=== PATIENT | female | born 1975 | race Caucasian/White ===

== ENCOUNTER → 2018-04-02 16:38 | Outpatient (CLI) | payer MEDICAID, SELFPAY ==
--- NOTE | 2018-04-02 16:46 | MM_ITS ---
MM Dig screening mamm BI w/CAD CAD Screening COMPARISON: Digital mammograms with CAD 12/25/2013 INDICATION: There is no personal or family history of breast cancer TECHNIQUE: Standard CC and MLO images were obtained. R2 CAD reviewed. FINDINGS: There is a diffusely dense and heterogenic parenchymal pattern lessening the sensitivity of mammography. There are couple benign-appearing calcifications left breast. There is no suspicious lesion and there are no suspicious microcalcifications. IMPRESSION: Diffusely dense parenchymal pattern with no suspicious lesion seen BI-RADS Category: 2 Benign Finding(s) RECOMMENDED FOLLOW-UP: 1YR - 1 YEAR FOLLOW-UP (A letter has been sent to the patient regarding results of the study.)
== END ==
PROVIDERS: PCP Nurse Practitioner Family; Visit Provider Nurse Practitioner Family
DX: Z12.31 Encounter for screening mammogram for malignant neoplasm of breast (principal)
CPT/HCPCS: 77067

== ENCOUNTER 2024-09-17 09:33 | Outpatient (CLI) | payer OTHER, SELFPAY ==
--- OUTSIDE RECORDS SUMMARY | 2024-09-17 09:37 | XMS_ITS | Data Portability ---
Author Organization [facility] Address [address] [place] [address] Care Team Providers Care Engraver Seals Name Role Phone BRANDEN PIZANO Primary Care Provider [phone] Assessment Encounter Date Assessment Date Assessment LastModified by Organization Details LastModified Time 04/11/2023 04/11/2023 PATIENT TO CONTINUE WITH CURRENT MANAGEMENT. WE HAVE HAD EXTENSIVE DISCUSSIONS REGARDING CHRONIC ISSUES. WILL CALL PATIENT TO DISCUSS RESULTS OF LAB WORK AND MAKE PLANS BASED ON FINDINGS. [email or web address] Not available 04/11/2023 09:14:32 Plan of Treatment Reminders Order Date Submit Date Provider Last Modified By Organization Details Last Modified Time Details Appointments None recorded. Lab noninvasive colorectal cancer DNA + occult blood screening, QL, stool 2022 023 [email or web address] (Cologuard Orders Only), [address], [address], [place], [address], 4 07:57:43 lipid panel, serum 2022 023 [facility] (Laboratory), [address] [place], [address], 3 14:02:54 CMP, serum or plasma 2022 023 [facility] (Laboratory), [address] [place], [address], 3 14:02:52 CBC w/ auto diff 2022 023 [facility] (Laboratory), [address] [place], [address], 3 13:38:50 TSH, serum or plasma 2022 [facility] (Laboratory), [address] [place], [address], 3 14:01:45 vitamin D, 25-hydroxy, total, serum [address] (Laboratory), [address] [place], [address], 3 13:40:42 vitamin B12 + folate, serum or blood [address] (Laboratory), [address] [place], [address], 3 13:41:09 thiamine, QN, blood 2022 [facility] (Laboratory), [address] [place], [address], 3 07:23:30 hemoglobin A1c + average glucose, QN, blood 2022 [facility] (Laboratory), [address] [place], [address], 3 07:23:30 Referral gastroenter ologist referral 2022 023 [facility] [address] [place], [address], 4 15:24:19 Procedures None recorded. Surgeries None recorded. Imaging LDCT, chest, for lung cancer screening 2022 [facility] (Lab Registration) , [address] [place], [address], 3 12:05:29 Medication Orders Medrol (Renaldo) 4 mg tablets in a dose pack 2023 [facility] [address], [address] [place], [address], 4 10:21:34 doxycycline hyclate 100 mg capsule 2023 [facility] [address], [address] [place] [address], [address], 4 10:21:34 venlafaxine ER 150 mg capsule,ext ended release 24 hr 2023 [facility] [address], [address] [place] [address], [address], 4 11:26:23 Allergy Relief (loratadine ) 10 mg tablet 2023 [facility] [address], [address] [place] [address], [address], 4 11:26:23 nicotine 21 mg/24 hr daily transdermal patch 2023 [facility] [address], [address] [place] [address], [address], 4 10:10:26 venlafaxine ER 150 mg capsule,ext ended release 24 hr 2022 023 [facility] [address], [address] [place] [address], [address], 3 09:40:26 Vraylar 1.5 mg capsule 2022 023 [facility] [address], [address] [place] [address], [address], 4 15:10:37 Patient TargetsNo targets recorded. Patient InstructionsNo instructions recorded. 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 Referring Physician: Branden Pizano, Family Medicine, Encounter Date: 04/11/2023 Results Created Date Observation Date Name Description Value Unit Range Abnormal Flag Note LastModifiedBy Organization Detail LastModifiedTime 04/11/20 23 04/11/2023 CBC AUTO W DIFF WBC 8.2 10 4.5-11 .5 Not Available [facility] (Lab Registration) [address] [place], [address], 04/11/2023 13:38:50 04/11/20 23 04/11/2023 CBC AUTO W DIFF RBC 4.51 10 4.25-5 .57 Not Available [facility] (Lab Registration) [address] [place], [address], 04/11/2023 13:38:50 04/11/20 23 04/11/2023 CBC AUTO W DIFF HGB 13.6 g/dL 12.0-1 5.7 Not Available [facility] (Lab Registration) [address] [place], [address], 04/11/2023 13:38:50 04/11/20 23 04/11/2023 CBC AUTO W DIFF HCT 41.4 % 36.0-4 7.0 Not Available [facility] (Lab Registration) [address] [place], [address], 04/11/2023 13:38:50 04/11/20 23 04/11/2023 CBC AUTO W DIFF MCV 91.8 fL 80-95 Not Available [facility] (Lab Registration) [address] [place], [address], 04/11/2023 13:38:50 04/11/20 23 04/11/2023 CBC AUTO W DIFF MCH 30.2 pg 27.0-3 4.0 Not Available [facility] (Lab Registration) [address] [place], [address], 04/11/2023 13:38:50 04/11/20 23 04/11/2023 CBC AUTO W DIFF MCHC 32.9 g/dL 32.0-3 6.0 Not Available [facility] (Lab Registration) [address] [place], [address], 04/11/2023 13:38:50 04/11/20 23 04/11/2023 CBC AUTO W DIFF platelet count 290 10 150-45 0 Not Available [facility] (Lab Registration) [address] [place], [address], 04/11/2023 13:38:50 04/11/20 23 04/11/2023 CBC AUTO W DIFF RDW 12.9 % 12.3-1 5.1 Not Available [facility] (Lab Registration) [address] [place], [address], 04/11/2023 13:38:50 04/11/20 23 04/11/2023 CBC AUTO W DIFF MPV 11.7 fL 7.4-10 .4 high Not Available [facility] (Lab Registration) [address] [place], [address], 04/11/2023 13:38:50 04/11/20 23 04/11/2023 CBC AUTO W DIFF granulocyte% 67.0 % 40-75 Not Available [facility] (Lab Registration) [address] [place], [address], 04/11/2023 13:38:50 04/11/20 23 04/11/2023 CBC AUTO W DIFF lymphocyte% 21.4 % 15-57 Not Available [facility] (Lab Registration) [address] [place], [address], 04/11/2023 13:38:50 04/11/20 23 04/11/2023 CBC AUTO W DIFF monocyte% 8.0 % 4.0-12 .0 Not Available [facility] (Lab Registration) [address] [place], [address], 04/11/2023 13:38:50 04/11/20 23 04/11/2023 CBC AUTO W DIFF eosinophil% 2.5 % 0.0-4. 0 Not Available [facility] (Lab Registration) [address] [place], [address], 04/11/2023 13:38:50 04/11/20 23 04/11/2023 CBC AUTO W DIFF basophil% 1.0 % 0.0-1. 0 Not Available [facility] (Lab Registration) [address] [place], [address], 04/11/2023 13:38:50 04/11/20 23 04/11/2023 CBC AUTO W DIFF immature granulocytes % 0.1 % 0.0-0. 8 Not Available [facility] (Lab Registration) [address] [place], [address], 04/11/2023 13:38:50 04/11/20 23 04/11/2023 CBC AUTO W DIFF granulocyte# 5.47 10 Not Available [facility] (Lab Registration) [address] [place], [address], 04/11/2023 13:38:50 04/11/20 23 04/11/2023 CBC AUTO W DIFF lymphocyte# 1.75 10 Not Available [facility] (Lab Registration) [address] [place], [address], 04/11/2023 13:38:50 04/11/20 23 04/11/2023 CBC AUTO W DIFF monocyte# 0.65 10 Not Available [facility] (Lab Registration) [address] [place], [address], 04/11/2023 13:38:50 04/11/20 23 04/11/2023 CBC AUTO W DIFF eosinophil# 0.20 10 Not Available [facility] (Lab Registration) [address] [place], [address], 04/11/2023 13:38:50 04/11/20 23 04/11/2023 CBC AUTO W DIFF basophil# 0.08 10 Not Available [facility] (Lab Registration) [address] [place], [address], 04/11/2023 13:38:50 04/11/20 23 04/11/2023 CBC AUTO W DIFF immature granulocytes # 0.01 10 Not Available [facility] (Lab Registration) [address] [place], [address], 04/11/2023 13:38:50 04/11/20 23 04/11/2023 CBC AUTO W DIFF manual differential NO Not Available [facility] (Lab Registration) [address] [place], [address], 04/11/2023 13:38:50 04/11/20 23 04/11/2023 CBC AUTO W DIFF note Unles s other ray noted testi ng perfo rmed at: [facility] [address] [place], [place] [address] [phone] Ze saba MD CLIA: [id number] Not Available [facility] (Lab Registration) [address] [place], [address], 04/11/2023 13:38:50 04/11/20 23 04/11/2023 THYRO ID STIMU LATIN G HORMO NE thyroid stimulating hormone 1.87 mIU/m L 0.34-4 .80 Not Available [facility] (Lab Registration) [address] [place], [address], 04/11/2023 14:01:45 04/11/20 23 04/11/2023 THYRO ID STIMU LATIN G HORMO NE note Unles s other ray noted testi ng perfo rmed at: [facility] [address] [place], [place] [id number] [phone] Ze saba MD CLIA: [id number] Not Available [facility] (Lab Registration) [address] [place], [address], 04/11/2023 14:01:45 04/11/20 23 04/11/2023 VITAM IN D TOTAL (D2+D 3) vitamin D25 (D2+D3) 50.7 NG/mL 30-100 Not Available [facility] (Lab Registration) [address], [place], [address], 04/11/2023 14:02:51 04/11/20 23 04/11/2023 VITAM IN D TOTAL (D2+D 3) note Unles s other ray noted testi ng perfo rmed at: [facility] [place] [address] [phone] Ze saba MD CLIA: [id number] Not Available [facility] (Lab Registration) [address] [place], [address], 04/11/2023 14:02:51 04/11/20 23 04/11/2023 COMP METAB OLIC PANEL sodium 138 mmol/ L 136-14 5 Not Available [facility] (Lab Registration) [address] [place], [address], 04/11/2023 14:02:52 04/11/20 23 04/11/2023 COMP METAB OLIC PANEL potassium 4.4 mmol/ L 3.5-5. 1 Not Available [facility] (Lab Registration) [address] [place], [address], 04/11/2023 14:02:52 04/11/20 23 04/11/2023 COMP METAB OLIC PANEL chloride 103 mmol/ L 98-107 Not Available [facility] (Lab Registration) [address] [place], [address], 04/11/2023 14:02:52 04/11/20 23 04/11/2023 COMP METAB OLIC PANEL carbon dioxide 27 mmol/ L 21-32 Not Available [facility] (Lab Registration) [address] [place], [address], 04/11/2023 14:02:52 04/11/20 23 04/11/2023 COMP METAB OLIC PANEL anion gap 8.0 Not Available [facility] (Lab Registration) [address] [place], [address], 04/11/2023 14:02:52 04/11/20 23 04/11/2023 COMP METAB OLIC PANEL glucose 95 mg/dL 70-110 Not Available [facility] (Lab Registration) [address] [place], [address], 04/11/2023 14:02:52 04/11/20 23 04/11/2023 COMP METAB OLIC PANEL blood urea nitrogen 18 mg/dL 7-18 Not Available [facility] (Lab Registration) [address] [place], [address], 04/11/2023 14:02:52 04/11/20 23 04/11/2023 COMP METAB OLIC PANEL creatinine 0.7 mg/dL 0.6-1. 0 Not Available [facility] (Lab Registration) [address] [place], [address], 04/11/2023 14:02:52 04/11/20 23 04/11/2023 COMP METAB OLIC PANEL BUN/creatini ne ratio 25.7 ratio 9-21 high Not Available [facility] (Lab Registration) [address] [place], [address], 04/11/2023 14:02:52 04/11/20 23 04/11/2023 COMP METAB OLIC PANEL estimated glom filtration rate 95 mL/mi n >60- Not Available [facility] (Lab Registration) [address] [place], [address], 04/11/2023 14:02:52 04/11/20 23 04/11/2023 COMP METAB OLIC PANEL total protein 7.5 g/dL 6.4-8. 2 Not Available [facility] (Lab Registration) [address] [place], [address], 04/11/2023 14:02:52 04/11/20 23 04/11/2023 COMP METAB OLIC PANEL albumin 3.6 g/dL 3.4-5. 0 Not Available [facility] (Lab Registration) [address] [place], [address], 04/11/2023 14:02:52 04/11/20 23 04/11/2023 COMP METAB OLIC PANEL calcium 9.5 mg/dL 8.5-10 .1 Not Available [facility] (Lab Registration) [address] [place], [address], 04/11/2023 14:02:52 04/11/20 23 04/11/2023 COMP METAB OLIC PANEL corrected calcium 9.8 mg/dL 8.5-10 .1 Not Available [facility] (Lab Registration) [address] [place], [address], 04/11/2023 14:02:52 04/11/20 23 04/11/2023 COMP METAB OLIC PANEL bilirubin total 0.7 mg/dL 0.4-1. 5 Not Available [facility] (Lab Registration) [address] [place], [address], 04/11/2023 14:02:52 04/11/20 23 04/11/2023 COMP METAB OLIC PANEL AST (SGOT) 23 U/L 15-37 Not Available [facility] (Lab Registration) [address] [place], [address], 04/11/2023 14:02:52 04/11/20 23 04/11/2023 COMP METAB OLIC PANEL ALT (SGPT) 30 U/L 12-78 Not Available [facility] (Lab Registration) [address] [place], [address], 04/11/2023 14:02:52 04/11/20 23 04/11/2023 COMP METAB OLIC PANEL alk phosphatase 97 U/L 50-120 Not Available [facility] (Lab Registration) [address] [place], [address], 04/11/2023 14:02:52 04/11/20 23 04/11/2023 COMP METAB OLIC PANEL note Unles s other ray noted testi ng perfo rmed at: [facility] [address] [place] [address] [phone] Ze saba MD CLIA: [id number] Not Available [facility] (Lab Registration) [address] , [place], [address], 04/11/2023 14:02:52 04/11/20 23 04/11/2023 LIPID PANEL triglyceride 65 mg/dL 20-200 The [employer]io nal [employer] t[employer] am (NCEP ) has set the follo wing guide lines for Fasti ng Trigl yceri derek: HARSH L: <150 mg/dL BORDE RLINE HIGH: 150 - 199 mg/dL HIGH: 200 - 499 mg/dL VERY HIGH: > or =500 mg/dL Not Available [facility] (Lab Registration) [address], [place], [address], 04/11/2023 14:02:54 04/11/20 23 04/11/2023 LIPID PANEL cholesterol 268 mg/dL 0-200 high The [employer] n[employer] t[employer] am (NCEP ) has set the follo wing guide lines for Fasti ng Rosa stero l: TIFFANY ABLE: <200 mg/dL BORDE RLINE HIGH: 200 - 239 mg/dL HIGH: > or =240 mg/dL Not Available [facility] (Lab Registration) [address], [place], [address], 04/11/2023 14:02:54 04/11/20 23 04/11/2023 LIPID PANEL HDL cholesterol 101 mg/dL 60- The [employer]io n[employer]ca t[employer]gr am (NCEP ) has set the follo wing guide lines for Fasti ng HDL Rosa stero l: LOW HDL: <40 mg/dL HARSH L: 40 - 60 mg/dL TIFFANY ABLE: >60 mg/dL Not Available [facility] (Lab Registration) [address] [place], [address], 04/11/2023 14:02:54 04/11/20 23 04/11/2023 LIPID PANEL LDL calculated 154 mg/dL 100- The [employer]io n[employer]ca t[employer]gr am (NCEP ) has set the follo wing guide lines for Fasti ng LDL Rosa stero l: OPTIM AL: < 100 mg/dL LOW RISK: 100 - 129 mg/dL BORDE RLINE HIGH: 130 - 159 mg/dL HIGH: 160 - 189 mg/dL VERY HIGH: > or = 190 mg/dL Not Available [facility] (Lab Registration) [address], [place], [address], 04/11/2023 14:02:54 04/11/20 23 04/11/2023 LIPID PANEL chol/HDL ratio 3 ratio -5 Not Available [facility] (Lab Registration) [address], [place], [address], 04/11/2023 14:02:54 04/11/20 23 04/11/2023 LIPID PANEL note Unles s other ray noted testi ng [facility] [address] [place] [address] [phone] Ze saba MD CLIA: [id number] Not Available [facility] (Lab Registration) [address], [place], [address], 04/11/2023 14:02:54 04/11/20 23 04/11/2023 VITAM IN B12 vitamin B12 538 pg/mL 193-98 6 Not Available [facility] (Lab Registration) [address], [place], [address], 04/11/2023 14:02:56 04/11/20 23 04/11/2023 VITAM IN B12 folate (folic acid), serum 17.3 NG/mL 8.6-58 .9 Not Available [facility] (Lab Registration) [address], [place], [address], 04/11/2023 14:02:56 04/11/20 23 04/11/2023 VITAM IN B12 note Unles s other ray noted testi ng perfo rmed at: [facility] [address] [place] [address] [phone] Ze saba MD CLIA: [id number] Not Available [facility] (Lab Registration) [address] , [place], [address], 04/11/2023 14:02:56 04/11/20 23 04/11/2023 HEMOG LOBIN A1C glycosylated hemoglobin A1C 5.9 % 4.5-6. 2 Not Available [facility] (Lab Registration) [address] [place], [address], 04/11/2023 14:18:20 04/11/20 23 04/11/2023 HEMOG LOBIN A1C estimated average glucose 123 mg/dL 82-131 Not Available [facility] (Lab Registration) [address] [place], [address], 04/11/2023 14:18:20 04/11/20 23 04/11/2023 HEMOG LOBIN A1C note Unles s other ray noted testi ng perfo rmed at: [facility] [address] [place] [address] [phone] Ze saba MD CLIA: [id number] Not Available [facility] (Lab Registration) [address] [place], [address], 04/11/2023 14:18:20 04/11/20 23 04/11/2023 VITAM IN B1 (THIA MINE) , BLOOD note Unles s other ray noted testi ng perfo rmed at: [facility] [address] [place] [phone] Ze saba MD CLIA: [id number] Not Available [facility] (Lab Registration) [address], [place], [address], 04/14/2023 06:12:47 04/11/20 23 04/14/2023 VITAM IN B1 (THIA MINE) , BLOOD vitamin B1 (thiamine), blood 107.1 nmol/ L 66.5-2 00.0 Speci men Comme nt: Test( s) 92369 8-Vit . B1, Whole Blood Speci men Comme nt: was devel oped and its perfo rmanc e edwige cte risti cs Speci men Comme nt: deter mined by [facility]. It has not been judy ared or appro iona Speci men Comme nt: by the Food and Drug Admin istra tion. Perfo rmed at: [facility] [address] [facility] [place] [address] Lab Direc tor: Georgina cochran MD, Phone : [phone] Not Available [facility] (Lab Registration) [address], [place], [address], 04/14/2023 06:12:47 04/18/20 23 04/18/2023 LDCT, chest , for lung cance r scree [facility] [address] [place] [address] Phone: Fax: Name: GIOVANNA BERNARDO Exam Date: 023 : 9[birth year] Age 47 years Gender : F Access ion: [id number] Physic naveen: LACI PIZANO NDE Facili ty: [facility] Facili ty HSV: Outpat ient Exam: CT CHEST LOW DOSE CT CHEST LOW DOSE SCREEN ING HISTOR Y: Curren t smoker . 35 pack year histor y. COMPAR CHONG: 022. TECHNI QUE: Axial images were obtain ed from the lung apices throug h the midabd omen by comput ed tomogr aphy withou t the admini strati on of contra st. This was perfor med as a low dose chest CT for lung cancer screen ing. This study was perfor med with techni ques to keep radiat ion doses as low as reason heber washburn (MULU ). Indivi dualiz ed dose reduct ion techni ques using automa margarita exposu re contro l or adjust ment of mA and/or kV accord ing to the patien t's size were employ ed. CTDI: 1.18 mGy. DLP: 39.54 mGy*cm . FINDIN GS: There is no axilla ry adenop athy. There is no medias tinal or hilar adenop athy. Heart size is normal . There is no perica rdial or pleura l effusi on. There has been slight interv al increa se in a right lower lobe nodule on image 91 which measur es 6 mm on today' s exam and previo usly measur ed 5 mm. There is a new 3 mm nodule in the left upper lobe on image 17. There is mild apical thicke mitesh. Limite d images of the upper abdome n are unrema rkable . No acute osseou s abnorm ality is identi fied. IMPRES BILL: LUNG RADS Catego ry 3. Low-do se CT of the chest in 6 months recomm ended. Films review ed , interp reted and dictat ed by Dr. Vaughn. Transc ribed by Tru Matson PA-C. Dictat ed By: ROBERTO VAUGHN Transc ribed By: ROBERTO VAUGHN Transc ribed On: 023 11:05 AM Electr onical ly signed by: ROBERTO VAUGHN 023 Thank you for referr ing GIOVANNA BERNARDO to [facility]. Legall y authen ticate d by POPE ROBERTO Nuñez DO 2022-05 11:05: 26 CC'ed Logic: Orderi ng Provid er: HARINDER STEVENS CC Provid er: HARINDER STEVENS Attend ing Provid er: HARINDER STEVENS Referr ing Provid er: HARINDER STEVENS Admitt ing Provid er: HARINDER STEVENS tpardini [facility] (Radiology) [address], [place], [address], 04/18/2023 15:21:13 Result Notes None recorded. Problems Name Problem SNOMED Code Status Onset Date Resolution Date Notes Provider Name and Address Organization Details Recorded Time Attention deficit hyperactivity disorder 226404437 Active 2021 Erika Pardini null, [place] [facility] [place] 2 10:09:02 Depressive disorder 43999617 Active 2021 Erika Pard[place] [facility] [place] 2 10:09:11 Anxiety disorder 856132605 Active 2021 Erika Pard[place] [facility] [place] 2 10:09:21 Abnormal cervical Papanicolaou smear 331970393 Active 2021 Erika Pard[place] [facility] [place] 2 10:09:36 Chronic insomnia 858054330 Active 2021 Erika Pard[place] [facility] [place] 2 10:09:51 Nicotine dependence 25894788 Active 2021 Erika Pard[place] [facility] [place] 2 10:10:06 Seasonal allergy 223551525 Active 2021 Erika Pardini [place] [facility] [place] 2 10:10:15 Alcoholism 7343495 Active 2022 Branden Pizano MD [address] [place] [address], [phone] , [place] [facility] [place] 3 09:35:18 Problem Notes None recorded. Procedures Surgical History Date Name Laterality Status Provider Name and Address Organization Details Recorded Time stripping of vein completed Erika Pardini [place] [facility] [place] 02/10/2022 10:14:32 section completed Erika Pardini [place] [facility] [place] 02/10/2022 10:14:40 Imaging Results Imaging Date Name Status LastModified by Organiz ation Details LastModified Time 04/18/2023 LDCT, chest, for lung cancer screening completed [facility] (Radiology) [address] , [place], [address], 04/18/2023 15:21:13 Procedure Notes None recorded. Medical Equipment None Reported. Allergies Allergen ID Allergen Name Allergen Category Reaction Reaction Severity Criticality Documentation Date Start Date Code Code System Note Provider Name and Address Organization Details Recorded Time 357323 latex environme nt,medica tion rash Not available Not available 01/21/2024 54192 91 RxNorm Ermelinda Luciana [facility] & [place] 12:38:07 Medications Name Sig Start Date Stop Date Status Note LastModified by Organization Details LastModified Time venlafaxine ER 75 mg capsule,ext ended release 24 hr TAKE 1 CAPSULE BY MOUTH ONCE DAILY 02/18 completed Not Available Not Available Not Available doxycycline hyclate 100 mg capsule TAKE 1 CAPSULE BY MOUTH TWICE DAILY active Not Available Not Available No t Available Vitamin C 500 mg tablet Take 1 tablet every day by oral route. 04/11 completed Not Available Not Available Not Available ibuprofen 800 mg tablet TAKE 1 TABLET BY MOUTH 4 TIMES DAILY WITH FOOD 04/11 completed Not Available Not Available Not Available hydrocodone 5 mg-acetamin ophen 325 mg tablet TAKE 1 TABLET BY MOUTH EVERY 6 HOURS NEEDED FOR PAIN 04/11 completed Not Available Not Available Not Available venlafaxine ER 150 mg capsule,ext ended release 24 hr TAKE 1 CAPSULE BY MOUTH ONCE DAILY active Not Available Not Available No t Available Nicotrol 10 mg inhalation cartridge USE DIRECTED 10/05 completed Not Available Not Available Not Available nicotine 21 mg/24 hr daily transdermal patch Apply 1 patch every day by transderm al route. 03/16 completed Not Available Not Available Not Available Advil 200 mg tablet Take 1 tablet every 8 hours by oral route. active Not Available Not Available No t Available magnesium 250 mg tablet Take 1 tablet every day by oral route. 10/05 completed Not Available Not Available Not Available methylpredn isolone 4 mg tablets in a dose pack TAKE BY MOUTH DIRECTED ON INSIDE OF PACKAGE active Not Available Not Available No t Available loratadine 10 mg tablet TAKE 1 TABLET BY MOUTH ONCE DAILY active Not Available Not Available No t Available naproxen 500 mg tablet take 1 tablet p.o. b.i.d. with food times 7-10 days 04/11 completed Not Available Not Available Not Available buspirone 15 mg tablet TAKE 1 TABLET BY MOUTH TWICE DAILY active Not Available Not Available No t Available varenicline tartrate 0.5 mg (11)-1 mg (42) tablets in a dose pack TAKE TABLETS BY MOUTH PER STARTER PACK INSTRUCTI ONS active Not Available Not Available No t Available Vitamin D3 125 mcg (5,000 unit) tablet Take 1 tablet every day by oral route. 04/11 completed Not Available Not Available Not Available Vraylar 1.5 mg capsule active Not Available Not Available N ot Available BinaxNOW COVID-19 Ag Self Test kit TEST DIRECTED TODAY 10/05 completed Not Available Not Available Not Available Vitals Date Recorded Body height Body mass index (BMI) Body weight Body temperature Oxygen saturation Oxygen saturation in Arterial blood by Pulse oximetry Heart rate Respiratory rate Systolic blood pressure Diastolic blood pressure Provider Name and Address Organization Details Last Updated DateTime 3 170.18 cm 23.9 kg/m2 93259.4 8 g 97.9 [degF] 97 % 97 % 74 /min 16 /min 163 mm[Hg] 87 mm[Hg] [facility] 3 09:15:03 Date Recorded Body height Body mass index (BMI) Body weight Body temperature Oxygen saturation Oxygen saturation in Arterial blood by Pulse oximetry Heart rate Respiratory rate Systolic blood pressure Diastolic blood pressure Provider Name and Address Organization Details Last Updated DateTime 3 170.18 cm 23.6 kg/m2 48242.4 5 g 98.3 [degF] 97 % 97 % 91 /min 18 /min 134 mm[Hg] 86 mm[Hg] [facility] 3 10:14:42 Date Recorded Body height Body mass index (BMI) Body weight Body temperature Oxygen saturation Oxygen saturation in Arterial blood by Pulse oximetry Heart rate Respiratory rate Systolic blood pressure Diastolic blood pressure Provider Name and Address Organization Details Last Updated DateTime 4 170.18 cm 24.2 kg/m2 45800.9 4 g 97.9 [degF] 100 % 100 % 72 /min 18 /min 118 mm[Hg] 76 mm[Hg] Erika Middleton [facility] [place] 4 15:10:22 Date Recorded Body height Body mass index (BMI) Body weight Body temperature Oxygen saturation Oxygen saturation in Arterial blood by Pulse oximetry Heart rate Respiratory rate Systolic blood pressure Diastolic blood pressure Provider Name and Address Organization Details Last Updated DateTime 4 170.18 cm 24.2 kg/m2 40325.9 4 g 98.1 [degF] 99 % 99 % 72 /min 16 /min 139 mm[Hg] 86 mm[Hg] Erika Middleton [facility] [place] 4 11:11:06 Date Recorded Body height Body mass index (BMI) Body weight Body temperature Oxygen saturation Oxygen saturation in Arterial blood by Pulse oximetry Heart rate Respiratory rate Systolic blood pressure Diastolic blood pressure Provider Name and Address Organization Details Last Updated DateTime 4 170.18 cm 23.9 kg/m2 80964.4 8 g 97.3 [degF] 97 % 97 % 72 /min 16 /min 145 mm[Hg] 93 mm[Hg] Erika Middleton [facility] [place] 4 10:09:45 Social History Question Answer Notes LastModified by Organizat ion Details LastModified Time Tobacco Smoking Status Current Some Day Smoker Erika Middleton [facility] & [place] 03/19/2024 10:10:27 Do You Have An Advance Directive? No Information not available 04/11/2023 What Is Your Level Of Alcohol Consumption? Moderate Information not available 03/19/2024 Do You Wear A Helmet When Biking? Yes Information not available 04/11/2023 Are You Blind Or Do You Have Difficulty Seeing? No Information not available 04/11/2023 What Is Your Level Of Caffeine Consumption? Occasional Information not available 02/10/2022 In The 14 Days Before Symptom Onset, Have You Had Close Contact With A Laboratory-confir med COVID-19 While That Case Was Ill? No Information not available 04/11/2023 In The 14 Days Before Symptom Onset, Have You Had Close Contact With A Person Who Is Under Investigation For COVID-19 While That Person Was Ill? No Information not available 04/11/2023 Have You Been To An Area Known To Be High Risk For COVID-19? No Information not available 04/11/2023 Are You Currently Employed? Yes Information not available 04/11/2023 Are You Deaf Or Do You Have Serious Difficulty Hearing? No Information not available 04/11/2023 What Type Of Diet Are You Following? REGULAR Information not available 04/11/2023 Have You Processed Blood Or Body Fluids From An Ebola Virus Disease Patient Without Appropriate PPE? No Information not available 04/11/2023 Do You Reside In Or Have You Traveled To An Area Where Ebola Virus Transmission Is Active? No Information not available 04/11/2023 Do You Or Have You Ever Used E-cigarettes Or Vape? Current User Of Electronic Cigarettes Information not available 10/05/2022 What Is Your Occupation? [email or web address] Information not available 06/13/2023 Have There Been Any Changes To Your Family Or Social Situation? Yes Information no t available 04/11/2023 What Is The Fluoride Status Of Your Home? Unknown Information not available 04/11/2023 Are There Any Guns Present In Your Home? No Information not available 04/11/2023 Have You Recently Or Are You Planning To Travel To An Area With Zika Virus? No Information not available 04/11/2023 Do You Use Insect Repellent Routinely? Yes Information not available 04/11/2023 What Was The Date Of Your Most Recent Tobacco Screening? 03/16/2024 Information not available 03/19/2024 What Is Your Current Pack Years? 10-19packyears Information not available 02/10/2022 Do You Have Any Pets? No Information not available 04/11/2023 What Is Your Relationship Status? Single Information not available 04/11/2023 Do You Use Your Seat Belt Or Car Seat Routinely? Yes Information not available 04/11/2023 Do You Have Smoke And Carbon Monoxide Detectors In Your Home? Yes Information not available 04/11/2023 Are You Passively Exposed To Smoke? Yes Information no t available 04/11/2023 Do You Or Have You Ever Used Smokeless Tobacco? Never Used Smokeless Tobacco Information not available 10/05/2022 How Much Tobacco Do You Smoke? 1 PPW Information not available 03/19/2024 Do You Feel Stressed (tense, Restless, Nervous, Or Anxious, Or Unable To Sleep At Night)? [id number] Information not available 04/11/2023 Do You Use Any Illicit Or Recreational Drugs? No Information not available 02/10/2022 Do You Use Sunscreen Routinely? Yes Information not available 04/11/2023 Has Tobacco Cessation Counseling Been Provided? Yes Information not available 02/10/2022 Are You Currently In School? No Information not available 04/11/2023 Do You Or Have You Ever Used Any Other Forms Of Tobacco Or Nicotine? Yes Information not available 10/05/2022 How Many Days In The Past Year Have You Consumed 4 Or More Drinks? -1 Information no t available 04/11/2023 Sex: Unknown Functional Status Question Answer Note LastModified by Organizat ion Details LastModified Time Do you have difficulty walking or climbing stairs? No Information not available 04/11/2023 Do you have transportation difficulties? No Information not available 04/11/2023 Are you able to walk? YESWOREST Information not available 04/11/2023 Do you have difficulty doing errands alone? No Information not available 04/11/2023 Are you able to care for yourself? Yes Information n ot available 04/11/2023 Do you have difficulty dressing or bathing? No Information not available 04/11/2023 What is your exercise level? Occasional Information not available 04/11/2023 Mental Status Question Answer Note LastModified by Organization D etails LastModified Time Do you have difficulty concentrating, remembering or making decisions? No Information no t available 04/11/2023 Family History Relationship Description Onset Age of this Age Resolved Age Notes LastModified by Organization Details LastModified Time Daughter Mixed anxiety and depressive disorder x3 [email or web address] Not available 2023 12:41:23 Mother Alcoholism [email or web address] Not availabl e 03/14/2024 10:21:26 Mother Mixed anxiety and depressive disorder [email or web address] Not available 2023 10:21:36 Maternal Grandmother Mixed anxiety and depressive disorder [email or web address] Not available 2023 10:21:39 Medical History No medical history recorded. Gynecological History Statement/Question Response Menses Monthly N Obstetrics History GPAL:G 0 P 0 0 0 0 Immunizations Vaccine Type Date Status Note Provider Nam e and Address Organization Details Recorded Time Influenza, split virus, quadrivalent, preservative 8 completed Samara marquez, [place] - [facility] [place] [facility] [place] 11/01/2023 07:37:20 COVID-19, mRNA, LNP-S, PF, 100 mcg/0.5mL dose or 50 mcg/0.25mL dose 2 completed Samara marquez, [place] [facility] [place] 11/01/2023 07:37:20 COVID-19, mRNA, LNP-S, PF, 100 mcg/0.5mL dose or 50 mcg/0.25mL dose 1 completed Samara marquez, [place] - [facility] & [place] 11/01/2023 07:37:20 COVID-19 vaccine, vector-nr, rS-Ad26, PF, 0.5 mL 1 completed Samara Reeder null, [place] - [facility] [place] 11/01/2023 07:37:20 Pneumococcal conjugate PCV20, polysaccharide [id number] conjugate, adjuvant, PF 2 completed Samara marquez, [place] - [facility] [place] 11/01/2023 07:37:20 Tdap 2 completed Samara marquez, [place] [facility] [place] 11/01/2023 07:37:20 Hep A, adult 8 completed JACKIE Johnson - [place] & [place] 11/01/2023 07:37:20 Influenza, split virus, quadrivalent, PF 1 completed JACKIE Johnson - [place] & [place] 11/01/2023 07:37:20 Past Encounters Encounter ID Performer Location Encounter Start Date Encounter Closed Date Diagnosis/Indication Diagnosis SNOMED-CT Code Diagnosis ICD10 Code Diagnosis Note [id number] Masood Lau MD [address] [place] [id number] 10/05/2022 11:54:50 10/05/2022 12:45:33 Costal chondritis 54023277 M94.0 Costochond ritis probably related to the fall. New problem with uncertain morbidity. No other abnormalit y that would indicate need for radiograph s at this time. We will treat with anti-infla mmatory. If symptoms worsen call for possible further investigat ion. [id number] Branden Pizano MD [address] [place] [id number] 04/11/2023 08:56:32 04/11/2023 09:44:20 Screening for malignant neoplasm of colon 158027971 Z12.11 WILL REFER PATIENT FOR COLONOSCOP Y. Adult heal th examination 434934972 Z00.00 Anxiety disorder 8643920 06 F41.9 WILL INCREASE PATIENT'S VENLAFAXIN E BACK UP TO 150 A DAY. I AM ALSO ADDING VRAYLAR TO REGIMEN. Chronic insomnia 6949122 04 F51.04 Depressive disorder 3548 9007 F32.A PATIENT APPEARS VERY ANXIOUS AND DEPRESSED. SHE IS WEEPY AND TEARY EYED IN THE ROOM. PATIENT IS BREAKING DOWN AND CRYING. SHE DENIES BEING SUICIDAL AT THIS TIME. SHE STATES THAT SHE IS UNDER A LOT OF STRESS IN PART DUE TO WORK. SHE ATTRIBUTES HER INCREASED ALCOHOL INTAKE TO THIS. Nicotine dependence 5629 4008 F17.200 WE HAVE HAD EXTENSIVE DISCUSSION S REGARDING PATIENT'S TOBACCO USE. WILL ADDRESS THIS AT HER NEXT VISIT IN A MONTH DUE TO HER ANXIETY AT THIS TIME. Diabetes m ellitus screening 551741228 Z13.1 WILL OBTAIN A1C TODAY. Hyperlipid emia screening 916716662 Z13.220 Alcoholism 0309104 F10.2 0 WE HAVE HAD EXTENSIVE DISCUSSION S REGARDING PATIENT'S ALCOHOL INTAKE. SHE CURRENTLY DRINKS ABOUT 6 BEERS A DAY. SHE HAS AGREED TO CUT THIS DOWN TO 2 BEERS A NIGHT. SHE WILL FOLLOW-UP WITH ME IN A MONTH, AT THAT TIME SHE WILL BRING IN A LOG OF HOW MUCH ALCOHOL SHE HAS HAD. Tobacco de pendence caused by cigarettes 7479730519 8846381 F17.210 [id number] Branden Pizano MD [address] [place] [id number] 05/02/2023 10:07:44 05/02/2023 10:28:43 Alcoholism 7097010 F10.20 We have reviewed patient is log. She states she is down to 3 beers a night. Anxiety disorder 06 F41.9 Continue with current regimen. Nicotine dependence 5629 4008 F17.200 We have discussed results of a low-dose CT. Patient is continuing to work on reducing her tobacco intake. Will reorder low-dose CT in 6 months. Screening for malignant neoplasm of colon 298804668 Z12.11 patient refuses colonoscop y, she will do a Cologuard. [id number] Branden Pizano MD [address] [place] [id number] 06/13/2023 15:00:47 06/13/2023 16:14:07 Anxiety disorder 249468236 F41.9 patient has been advised to follow-up with her behavioral health specialist . Will see her for physical issues as needed. [id number] Branden Pizano MD [address] [place] [id number] 02/19/2024 10:56:27 02/19/2024 11:19:09 Seasonal allergic rhinitis 999274784 J30.2 Depressive disorder 3548 9007 F32.A Tobacco de pendence caused by cigarettes 2192558138 8995518 F17.210 Patient is interested in using patches to stop smoking [id number] Branden Pizano MD [address] [place] [id number] 03/19/2024 09:50:13 03/19/2024 10:11:04 Acute sinusitis 13049579 J01.90 Health Concerns Section Related Observation LastModified by Organization Detai ls LastModified Time None Recorded Concern Status LastModified by Organization Details LastModified Time None Recorded Advance Directives Directive N: Payers Insurance Date Sequence Insurance Name Policy Number Policy Persaud Covered Member ID Persaud Member ID Guarantor Name 02/19/2024 1 [employer] [place] (MEDICA[place] HMO) Giovanna Wolf [id number] Giovanna Wolf 04/11/2023 1 UNSPECIFIED REMIT PAYOR Giovanna Wolf 03/17/2024 SLIDING FEE SCHEDULE - DISCOUNT Giovanna Wolf 06/30/2024 1 [employer] [place] ([place] Giovanna Wolf [id number] Giovanna Wolf 06/27/2024 1 [facility] ([place] [id number] Giovanna Wolf [id number] Giovanna Wolf Notes Date Note Type Note Provider Name and Address Organization Details Recorded Time 04/11/2023 text/html PT PRESENTS FOR ANNUAL PHYSICAL EXAMINATION, PATIENT IS COMPLAINING OF A LOT OF ANXIETY AND STRESS AT THIS TIME. PT PRESENTS FOR CHRONIC CARE MANAGEMENT, DENIES ANY NEW ISSUES. IS COMPLIANT WITH MEDICATIONS Branden Pizano MD [address] [place] [address], [phone], [facility] & [place] 04/11/2023 10:20:31 05/02/2023 text/html States he presents today to follow-up on changes that were made at her last visit 1 month ago. We started her on Vraylar, we also discussed her mixed anxiety and depression. She was referred to a behavioral health specialist. We discussed her alcohol intake patient was going to cut down the amount of alcohol she took daily and is presenting today with a log. Branden Pizano MD [address] [place] [address], [phone], [place] - [facility] [place] & [place] 05/02/2023 10:34:07 06/13/2023 text/html pt presents toda y for medication follow up - pt states that she has stopped taking vraylar due to tremors Branden Pizano MD [address] [place] [address], [phone], [place] - [facility] & [place] 06/13/2023 15:28:24 02/19/2024 text/html Patient presents today for refills on medications. She denies any new issues at this time. Branden Pizano MD [address] [place], [phone], [facility] & [place] 02/19/2024 11:42:07 03/19/2024 text/html Patient presents with a 1-1/2 week history of sinus problems. These include sinus congestion, sneezing, cough productive of greenish sputum and generalized malaise. Patient states that her daughter has had similar symptoms and has been diagnosed with pneumonia. Branden Pizano MD [address] [facility], [place], [phone], [facility] 03/19/2024 10:21:42 OBGyn Episode No OBEpisode recorded.
--- NOTE | 2024-09-17 09:40 | XR_ITS ---
FINAL REPORT TECHNIQUE: Bone densitometry calculations of the lumbar spine and left hip were obtained. CLINICAL HISTORY: . COMPARISON: None FINDINGS: Using L1-4, the bone mineral density of the spine is 0.930 g/cm2, corresponding to T-score of -1.1 and a Z score of -0.3. This is within the range of osteopenia. Using the left hip, the bone mineral density of the femoral neck is 0.793 g/cm2, corresponding to a T-score of -1.2 and a Z-score of -0.7. This is within the range of osteopenia. Using the right hip, the bone mineral density of the femoral neck is 0.706 g/cm?, corresponding to a T-score of -1.3 and a Z-score of -0.5. This is within the range of osteopenia. NOTE: T-score: Standard deviation compared with peak bone mass of young adult mean. *Following the recommendations of the International Society of Bone densitometry, classification of hip BMD is based on the lower of two T-scores; total hip or femoral neck. IMPRESSION: 1. Bone mineral density of the lumbar spine within the range of osteopenia. 2. Bone mineral density of the bilateral femoral necks within the range of osteopenia. Reviewed, Interpreted and Dictated by Roya Smith MD Transcribed by Felicia Banerjee Authenticated and [facility]
--- NOTE | 2024-09-17 09:40 | MM_ITS ---
PROCEDURE INFORMATION: Exam: MG Bilateral Screening 3D Mammography Exam date and time: 09/17/2024 9:52 AM Age: 48 years old Clinical indication: Screening examination TECHNIQUE: Imaging protocol: Bilateral Screening tomosynthesis and 2D mammography including computer-aided detection (CAD) when performed. COMPARISON: 1. MG SCBI MM Dig screening mamm BI w/CAD 04/02/2018 4:50 PM 2. MG MA Mammo Digital Screening bilat (NB) 12/25/2013 10:50 AM FINDINGS: MAMMOGRAPHY: Breast composition: There are scattered areas of fibroglandular density. Mass: None. Architectural distortion: None. Calcifications: No suspicious calcifications. Asymmetric density: None. Skin thickening: None. Axillary adenopathy: None. IMPRESSION: No mammographic evidence of malignancy. Annual screening is recommended unless otherwise clinically indicated. ASSESSMENT: BI-RADS Category 1: Negative.
== END 2024-09-17 23:59 | disposition home or self-care (01) ==
LOC: RAD 09:36
PROVIDERS: PCP Nurse Practitioner Family; Visit Provider Nurse Practitioner Family
DX: M81.0 Age-related osteoporosis without current pathological fracture (principal); Z12.31 Encounter for screening mammogram for malignant neoplasm of breast
CPT/HCPCS: 77063; 77067; 77080

== ENCOUNTER 2025-01-01 10:06 | Outpatient (CLI) | payer OTHER, SELFPAY ==
--- NOTE | 2025-01-01 10:10 | CT_ITS ---
FINAL REPORT TECHNIQUE: Routine axial images were obtained from the lung apices to below the diaphragm following IV contrast administration. Individualized dose reduction techniques using automated exposure control or adjustment of the mA and/or kV according to the patient size were employed. CLINICAL HISTORY: LUNG NODULE former smoker stopped july 2024 grandmother had lung cancer COMPARISON: Prior outside CT dated 04/18/2023 FINDINGS: CT CHEST WITH CONTRAST: No mass or adenopathy is identified in the mediastinum, vinh, or axilla. No confluent infiltrates are present. No pleural or pericardial effusions are seen. There is a nodule in the peripheral right lower lobe, best seen on image #65 of series 2, measuring 6 mm in size, which is stable when compared to the prior outside examination of 2022. The left upper lobe nodule seen on the outside examination is not visualized on today's examination. No new focal nodules or masses are identified. IMPRESSION: Right lower lobe nodule seen on the prior examination of 2022 is stable in size and appearance when compared to the prior exam. The previously seen left upper lobe nodule on the prior examination is not seen on the current examination. No new nodules or adenopathy are visualized. Suggest resuming normal yearly follow-up schedule of low-dose CT examinations. Reviewed, Interpreted and Dictated by Chucky Mccarthy MD Transcribed by Felicia Banerjee Authenticated and [facility]
[2025-01-01] MEDS: SODIUM CHLORIDE 0.9% 10ML SYR (RAD ONLY) 10 ML IV (10:29)
[2025-01-01] MEDS: IOPAMIDOL-370 (76%);100ML BOTTLE 75 ML IV (10:29)
== END 2025-01-01 23:59 | disposition home or self-care (01) ==
LOC: RAD 10:07
PROVIDERS: PCP Nurse Practitioner Family; Visit Provider Nurse Practitioner Family
DX: R91.8 Other nonspecific abnormal finding of lung field (principal); Z87.891 Personal history of nicotine dependence; Z80.1 Family history of malignant neoplasm of trachea, bronchus and lung
CPT/HCPCS: 71260; Q9967